=== PATIENT | male | born 1945 | race Caucasian/White ===

== ENCOUNTER 2020-11-11 16:35 | Outpatient (RCR) | payer MEDICARE, OTHER ==
[~2020-11-11 16:35] MED LIST: ACIDOPHILUS1 EAC4 PO; ADVAIR 250-501 EACH INH; ALBUTEROL1.25 MG/3 INH; ALLOPURINOL100 MG PO; AVODART0.5 MG PO; CRESTOR20 MG PO; DILANTIN30 MG PO; DIOVAN HCT 1601 EACH PO; ECOTRIN81 MG PO; FLOMAX0.4 MG PO; FLUTICASONE PRO16 GM; FLUTICASONE PRO16 GM INH; FOLIC ACID1 MG PO; GABAPENTIN600 MG PO; GLIPIZIDE5 MG PO; GLUCOPHAGE500 MG PO; IRON325 MG PO; LASIX20 MG PO; MONTELUKAST SOD10 MG PO; NEURONTIN300 MG; NEXIUM40 MG PO; PHENOBARBITAL15 MG PO; PROVENTIL HFA6.7 GM INH; QPAP PO; SPIRIVA18 MCG INH; THEO-24300 MG PO; ULTRAM50 MG PO
== END 2020-12-04 ==
LOC: WCC 16:35
PROVIDERS: ATTEND Podiatrist
DX: R69 Illness, unspecified (principal)